=== PATIENT | female | born 1945 | race Hispanic/Latino ===

== ENCOUNTER 2020-02-25 07:27 | Day surgery (SDC) | payer OTHER ==
[2020-02-21 14:16] LABS: Absolute Lymphocytes (CBC) 2.3 K/uL (0.7-4.9); Basophils % 0.3 % (0-1.3); Hematocrit 41.3 % (36.0-45.0); Lymphocytes % 41.8 % (15.3-44.8); MPV 12.3 fL (7.6-11.3); Potassium 3.5 mmol/L (3.5-5.1); RBC Red Blood Cell Count 4.76 M/uL (3.86-4.86)
--- NOTE | 2020-02-21 14:43 | RAD REPORT ---
EXAM DESCRIPTION: Karin Pa And Lat (2 Views)02/21/2020 1:28 pm CLINICAL HISTORY: Preop COMPARISON: None FINDINGS: An area of scarring or subsegmental atelectasis is present within the mid right lung. The remainder of lungs appear clear of acute infiltrate. Lungs are mildly hyperaerated A pectus deformity is present The heart is normal size
[2020-02-21 16:00] LABS: Blood Morphology Comment NOT SEEN (NOT SEEN); Platelet Estimate DECR; White Blood Cell Scan OK (OK)
--- NOTE | 2020-02-24 07:50 | EKG ---
Test Date: 2020-02-21 Test Time: 13:30:23 Aromatherapist: NATALY MEASUREMENT RESULTS: Intervals: Rate: 62 VA: 158 QRSD: 74 QT: 418 QTc: 424 [place]: P: 50 VA: 158 QRS: 34 T: 67 INTERPRETIVE STATEMENTS: Normal sinus rhythm with sinus arrhythmia Normal ECG Compared to ECG 06/17/2014 10:55:39 Myocardial infarct finding no longer present Electronically Signed On 02-24-20 07:41:58 AUTOMATIC GRINDING MACHINE OPERATOR by David Chavez
[2020-02-25] MEDS: Ringers Lactate 1,000 ML IV ONE ×2 (08:05→08:29)
[2020-02-25] MEDS: CEFOXITIN/SWI 1gm 1 GM/10 ML SYR ONE ×2 (08:29→09:35)
[2020-02-25] MEDS ORDERED: LIDOCAINE 2% MPF 5 ML VIAL ONE (09:21)
[2020-02-25] MEDS ORDERED: propofoL 200 MG/20 ML VIAL IV ONE (09:21)
[2020-02-25] MEDS ORDERED: ROCURONIUM 50 MG/5 ML VIAL IV ONE (09:21)
[2020-02-25] MEDS ORDERED: FENTANYL CITR 250 MCG/5 ML ONE (09:21)
[2020-02-25] MEDS ORDERED: MIDAZOLAM HCL 2 MG/2 ML INJ ONE (09:21)
[2020-02-25] MEDS ORDERED: dexAMETHasone 10 MG/ML VIAL ONE (09:21)
[2020-02-25] MEDS ORDERED: ONDANSETRON 4 MG/2 ML VIAL ONE ×2 (09:23→11:23)
[2020-02-25] MEDS ORDERED: EPHEDRINE SULF 50 MG/ML VIAL ONE (10:05)
[2020-02-25] MEDS: HYDROMORPHONE HCL 1 MG/ML INJ ONE ×2 (11:02→11:07)
--- NOTE | 2020-02-25 11:08 | OP ---
Date of Procedure: 02/25/2020 Surgeon: Eduardo Kaye MD Student Career Development Specialist: ADAMARIS Castle. Preoperative Diagnosis: Chronic abdominal pain, chronic cholecystitis. Postoperative Diagnosis: Chronic abdominal pain, chronic cholecystitis with extensive adhesions. Procedures Performed: Diagnostic laparoscopy, lysis of adhesions, laparoscopic cholecystectomy. Estimated Blood Loss: Minimal. Specimen: Gallbladder. Findings: As above. Anesthesia: General. Complications: None. Disposition: The patient tolerated the procedure in stable condition, taken to Recovery in good gene ral condition. Procedure In Detail: The patient was brought to the OR and placed in supine position and general ane sthesia begun. The patient was prepped and draped in the usual sterile fashion. Marcaine 0.5% was i nfiltrated locally. A 15-blade was used to make a 1 cm supraumbilical midline incision. Subcutaneou s tissue was divided. Fascia was identified and divided. A #1 Vicryl stay suture was placed. Perit tucker cavity was entered with sharp and blunt dissection. A 12 mm trocar was placed into the periton eal cavity under direct vision. Pneumoperitoneum was established and three 5 trocars were placed, 1 in the epigastrium just to the right of midline and 2 in the right subcostal region. Laparoscopy rev ealed adhesions to the gallbladder consistent with chronic cholecystitis and also extensive adhesions in the right lower quadrant and midline. These were omental adhesions that were taken down with Lig aSure. Approximately 15 to 20 minutes was utilized lysing all of these adhesions. After this was co mpleted, the fundus of the gallbladder was retracted superiorly. Infundibulum was identified after d igit was taken down and retracted inferolaterally. The cystic artery and cystic duct were clearly id entified. Blunt dissection was utilized and then clips placed. Both structures were divided. Caute ry was used to remove the gallbladder from the liver bed. Bleeding on the liver bed was controlled w ith cautery. Gallbladder was retrieved through the umbilicus via an EndoCatch bag. Right upper quad rant was examined and no evidence of bleeding or bile leakage appreciated. There was no evidence of bowel injury or any other issues or disease identified. Subsequently, all trocars were removed under direct vision. Stay sutures were tied to each other to reapproximate the fascial defect. Subcutane ous wounds were irrigated. Bleeding was controlled with cautery. A 0 chromic was used for subcutane ous tissue and close the skin. Sterile dressing was applied. The patient was awakened and taken to Recovery in good general condition. Discharge Note: The patient will go to Day Surgery and home when stable. Disposition: Home. Condition: Stable. Discharge Instructions: Resume home medications and diet. Activity as tolerated. Remove outer dres sing in 2 days. Shower. Keep wound clean and dry. Keep Steri-Strips on at all times. Incentive sp irometry as ordered. Follow up in my office in 2 weeks. Call for appointment. Tylenol No.3 one tab let p.o. q.4 p.r.n. pain. /MODL Voice ID: [id number] Report ID: [id number]
[2020-02-25 11:55] VITALS: TEMP 97
[2020-02-25] MEDS ORDERED: HYDROCODONE/APAP 7.5/325 MG TAB ONE (11:59)
[2020-02-25 13:31] VITALS: BP 120/42; O2SAT 96
== END 2020-02-25 13:25 | disposition home or self-care (01) ==
LOC: OR 07:27
PROVIDERS: ATTEND Surgery
PROC: 0DNU4ZZ Release Omentum, Percutaneous Endoscopic Approach (ICD-10-PCS; 2020-02-25)
PROC: 0FN44ZZ Release Gallbladder, Percutaneous Endoscopic Approach (ICD-10-PCS; 2020-02-25)
PROC: 0FT44ZZ Resection of Gallbladder, Percutaneous Endoscopic Approach (ICD-10-PCS; principal; 2020-02-25 08:30)
DX: K81.1 Chronic cholecystitis (principal); K82.8 Other specified diseases of gallbladder; Z20.828 Contact with and (suspected) exposure to other viral communicable diseases
CPT/HCPCS: 93005; 85025; 80048; 36415; 88304; 71046; 47562; 49329; 47579; U0002; J2704; J2250; J3010; J1100; J1170; J7120; J2405 ×2